=== PATIENT | male | born 1945 ===

== ENCOUNTER 2018-07-24 10:33 | Outpatient (CLI) | payer OTHER ==
[~2018-07-24] VITALS: Ht 172.7 cm; Wt 78.5 kg
== END 2018-07-24 10:40 | disposition home or self-care (01) ==
LOC: OFIC 805 10:33
DX: H90.3 Sensorineural hearing loss, bilateral (principal); H93.13 Tinnitus, bilateral; H61.23 Impacted cerumen, bilateral